=== PATIENT | male | born 1960 | race Caucasian/White ===

== ENCOUNTER 2017-03-15 09:53 | Day surgery (SDC) | payer BC ==
[~2017-03-15] VITALS: Ht 172.7 cm; Wt 84.0 kg
[~2017-03-15 09:53] MED LIST: ALPRAZOLAM0.5 MG PO; ASPIRIN81 M2 PO; Ecotrin PO; LISINOPRIL-HCT1 EAC3 PO; MOBIC15 MG PO; OMEPRAZOLE40 M1 PO; TOPROL XL100 MG PO
[2017-03-15] MEDS ORDERED: ATORVASTATIN CA40 MG PO (12:31)
[2017-03-15] MEDS ORDERED: NITROSTAT0.4 MG SL (12:32)
== END 2017-03-15 16:57 | disposition home or self-care (01) ==
LOC: CATH 09:53
DX: I25.10 Atherosclerotic heart disease of native coronary artery without angina pectoris (principal); I10 Essential (primary) hypertension; Z82.49 Family history of ischemic heart disease and other diseases of the circulatory system; Z87.891 Personal history of nicotine dependence; E78.5 Hyperlipidemia, unspecified; K21.9 Gastro-esophageal reflux disease without esophagitis; Z79.82 Long term (current) use of aspirin
CPT/HCPCS: C1769; C1887; J1200; J1644; J2250; J3010